=== PATIENT | female | born 1960 | race Caucasian/White ===

== ENCOUNTER 2021-04-21 02:57 | Emergency (ER) | payer OTHER ==
[~2021-04-21 02:57] MED LIST: BUPROPION HCL100 M1 PO; CEFUROXIME500 MG PO; CELEXA 20MG TAB20 MG PO; CLARITIN 10MG T10 MG PO; CLONAZEPAM1 MG PO; ELAVIL 50 MG TA50 MG PO; GABAPENTIN800 MG PO; IRBESARTAN300 MG PO; METHOCARBAMOL750 MG PO; MONTELUKAST SOD10 MG PO; NORVASC 5 MG TAB5 MG PO; PANTOPRAZOLE SO40 MG PO
[2021-04-21 08:22] LABS: HEMOGLOBIN 11.8 gm/dl (12.3-15.3); RED BLOOD COUNT 3.92 M/UL (4.00-5.10); WHITE BLOOD COUNT 6.2 K/UL (4.5-11.0)
[2021-04-21 08:55] LABS: BUN/CREATININE RATIO 19 (0-10)
[2021-04-21 14:36] LABS: HEMOGLOBIN 9.9 gm/dl (12.3-15.3); WHITE BLOOD COUNT 4.8 K/UL (4.5-11.0)
[2021-04-21 14:37] LABS: RED BLOOD COUNT 3.4 M/UL (4.00-5.10)
== END 2021-04-21 17:35 ==
LOC: ER1 02:57
PROVIDERS: Emergency Medicine
DX: T81.30XA Disruption of wound, unspecified, initial encounter (principal)
CPT/HCPCS: 51702; 72170; 73502; 73552; 73562; 73701; 80053; 85025; 85652; 86140; 87040; 96374; 96375; 96376; 99285; J1170; J2270; J3010; Q9965

== ENCOUNTER 2021-06-08 06:38 | Emergency (ER) | payer OTHER ==
[~2021-06-08] VITALS: Ht 162.6 cm; Wt 136.1 kg
[2021-06-08 08:16] LABS: HEMOGLOBIN 10.9 gm/dl (12.3-15.3); RED BLOOD COUNT 4.28 M/UL (4.00-5.10); WHITE BLOOD COUNT 4.3 K/UL (4.5-11.0)
[2021-06-08 08:46] LABS: BUN/CREATININE RATIO 14 (0-10)
== END 2021-06-08 12:36 | disposition home or self-care (01) ==
LOC: ER1 06:38
PROVIDERS: Physician Assistant
DX: L03.115 Cellulitis of right lower limb (principal); Z79.899 Other long term (current) drug therapy
CPT/HCPCS: 73562; 80053; 83605; 85025; 85652; 86140; 87040; 87070; 87077; 87186; 87205; 96365; 96375; 99284; J0690; J1885; J7030